=== PATIENT | female | born 1990 ===

== ENCOUNTER 2024-10-19 10:24 | Inpatient (IN) | payer OTHER ==
[2024-10-31] MEDS ORDERED: SILV20CR11 TP (20:53)
[2024-10-31 21:08] VITALS: BP 116/88; PULSE 108; RESP 18; TEMP 98.8; O2SAT 97
[2024-10-31] MEDS ORDERED: SENN8.6T20 PO (21:20)
[2024-10-31] MEDS ORDERED: MULT-1303 PO (21:20)
[2024-10-31] MEDS ORDERED: LACT1CAP58 PO (21:20)
[2024-10-31] MEDS ORDERED: OLAN2.5T78 PO (21:20)
[2024-10-31] MEDS ORDERED: CHOL400T56 PO (21:20)
[2024-10-31] MEDS ORDERED: THIA50TA16 PO (21:20)
[2024-10-31] MEDS ORDERED: ACET-66 PO (21:20)
[2024-10-31] MEDS ORDERED: [UNRECOGNIZED DRUG - CODE] PO (21:20)
[2024-10-31] MEDS ORDERED: ZOLPIDEM TARTRATE 5 MG TABLET PO PRN (21:45)
[2024-10-31] MEDS ORDERED: BISACODYL 10 MG RECTAL RECTAL SUPPOSITORY PR PRN (21:45)
[2024-10-31] MEDS ORDERED: ONDANSETRON HCL 4 MG/2 ML VIAL IVP PRN (21:45)
[2024-10-31] MEDS ORDERED: ACETAMINOPHEN 325 MG TABLET PO PRN (21:45)
[2024-10-31] MEDS ORDERED: MAGNESIUM HYDROXIDE SUSPENSION 30 ML UDCUP PO PRN (21:45)
[2024-10-31] MEDS ORDERED: SENNOSIDES 8.6 MG TABLET PO PRN (21:45)
[2024-10-31] MEDS: HEPARIN SODIUM,PORCINE 5,000 UNITS/ML VIAL SQ SCH (22:36)
[2024-11-01 06:10] VITALS: BP 100/64; PULSE 73; RESP 18; TEMP 97.9; O2SAT 97
[2024-11-01 07:51] VITALS: BP 113/79; PULSE 85; RESP 20; TEMP 97.9; O2SAT 100
[2024-11-01] MEDS: SILVER SULFADIAZINE 1% 25 GM CREAM TUBE TP SCH (08:45)
[2024-11-01] MEDS: ASCORBIC ACID 500 MG TABLET PO SCH (08:46)
[2024-11-01] MEDS: OLANZapine 2.5 MG TABLET PO SCH (08:46)
[2024-11-01] MEDS: PANTOPRAZOLE SODIUM 40 MG DR TABLET PO SCH (08:46)
[2024-11-01] MEDS: CHOLECALCIFEROL (VIT D3) 2,000 UNITS [50 MCG] TABLET PO SCH (08:46)
[2024-11-01] MEDS: DOCUSATE SODIUM 100 MG CAPSULE PO SCH (08:46)
[2024-11-01] MEDS: MULTIVITAMINS WITH MINERALS, THERAPEUTIC TABLET PO SCH (08:46)
[2024-11-01 08:50] LABS: EOSINOPHILS % (AUTO) 1.1 % (1.0-6.0); HEMATOCRIT 42.4 % (36-46); HEMOGLOBIN 14.3 g/dL (12.0-16.0); LYMPHOCYTES # (AUTO) 0.9 K/uL (1.0-4.8); LYMPHOCYTES % (AUTO) 12.2 % (22.0-44.0); MEAN CORPUSCULAR HEMOGLOBIN 31.4 pg (26.0-34.0); MEAN CORPUSCULAR HGB CONC 33.7 G/dL (31.0-37.0); MEAN CORPUSCULAR VOLUME 93 fL (80-100); MONOCYTES # (AUTO) 0.4 K/uL (0.1-1.0); MONOCYTES % (AUTO) 5.7 % (2.0-9.0); NEUTROPHILS # (AUTO) 6.2 K/uL (1.8-7.7); PLATELET COUNT (AUTO) 289 K/uL (150-450); RED BLOOD CELL COUNT(AUTO) 4.55 MIL/uL (4.00-5.20); RED CELL DISTRIBUTION WIDTH 14.8 % (11.5-14.5); WHITE BLOOD COUNT (AUTO) 7.7 K/uL (4.5-11.0)
[2024-11-01 08:57] LABS: ANION GAP 7 mmol/L (8-16); CALCIUM, TOTAL 9.1 mg/dL (8.8-10.5); CARBON DIOXIDE 29 mmol/L (22-29); CHLORIDE 102 mmol/L (98-107); CREATININE 0.53 mg/dL (0.60-1.30); GLOMERULAR FILTR. RATE CALC > 60 mL/min (>60); GLUCOSE,RANDOM 97 mg/dL (70-110); POTASSIUM 3.8 mmol/L (3.5-5.1); SODIUM SERUM 138 mmol/L (136-145); UREA NITROGEN, BLOOD 11 mg/dL (7-18)
[2024-11-01 16:46] VITALS: BP 103/72; PULSE 80; RESP 20; TEMP 98.2; O2SAT 100
[2024-11-01 19:54] VITALS: BP 134/78; PULSE 66; RESP 20; TEMP 98.1; O2SAT 100
[2024-11-02 05:42] VITALS: BP 105/68; PULSE 90; RESP 18; TEMP 98.2; O2SAT 98
[2024-11-02 07:15] LABS: BASOPHILS % (AUTO) 0.5 % (0.0-2.0); EOSINOPHILS % (AUTO) 2.1 % (1.0-6.0); LYMPHOCYTES # (AUTO) 0.7 K/uL (1.0-4.8); LYMPHOCYTES % (AUTO) 13.4 % (22.0-44.0); MEAN CORPUSCULAR HEMOGLOBIN 30.9 pg (26.0-34.0); MEAN CORPUSCULAR HGB CONC 33.3 G/dL (31.0-37.0); MEAN CORPUSCULAR VOLUME 93 fL (80-100); MONOCYTES # (AUTO) 0.4 K/uL (0.1-1.0); MONOCYTES % (AUTO) 8.4 % (2.0-9.0); NEUTROPHILS % (AUTO) 75.6 % (40.0-70.0); PLATELET COUNT (AUTO) 247 K/uL (150-450); RED CELL DISTRIBUTION WIDTH 14.7 % (11.5-14.5); WHITE BLOOD COUNT (AUTO) 5.2 K/uL (4.5-11.0)
[2024-11-02 07:31] LABS: ANION GAP 6 mmol/L (8-16); CALCIUM, TOTAL 8.6 mg/dL (8.8-10.5); CARBON DIOXIDE 29 mmol/L (22-29); CHLORIDE 104 mmol/L (98-107); GLOMERULAR FILTR. RATE CALC > 60 mL/min (>60); GLUCOSE,RANDOM 86 mg/dL (70-110); POTASSIUM 3.9 mmol/L (3.5-5.1); SODIUM SERUM 138 mmol/L (136-145); UREA NITROGEN, BLOOD 10 mg/dL (7-18)
[2024-11-02 08:52] VITALS: BP 108/75; PULSE 78; RESP 18; TEMP 98; O2SAT 99
[2024-11-02] MEDS ORDERED: THIA100T80 PO (11:17)
[2024-11-02] MEDS ORDERED: ACET-2247 PO (11:17)
[2024-11-02] MEDS ORDERED: CHOL25TA4 PO (11:17)
[2024-11-02] MEDS ORDERED: ASCO500 PO (11:17)
[2024-11-02 18:07] VITALS: BP 117/91; PULSE 70; RESP 18; TEMP 97.7; O2SAT 96
[2024-11-02 19:40] VITALS: BP 108/81; PULSE 82; RESP 18; TEMP 98.1; O2SAT 100
[2024-11-02] MEDS: OLANZapine 10 MG TABLET PO SCH (21:00)
[2024-11-02] MEDS: MIRTAZAPINE 15 MG TABLET PO SCH (21:00)
[2024-11-03 04:50] VITALS: BP 111/71; PULSE 83; RESP 18; TEMP 97.3; O2SAT 98
[2024-11-03 07:15] LABS: BASOPHILS % (AUTO) 0.7 % (0.0-2.0); EOSINOPHILS % (AUTO) 1.4 % (1.0-6.0); HEMATOCRIT 36.9 % (36-46); HEMOGLOBIN 12.6 g/dL (12.0-16.0); LYMPHOCYTES # (AUTO) 0.9 K/uL (1.0-4.8); MEAN CORPUSCULAR HEMOGLOBIN 31.5 pg (26.0-34.0); MEAN CORPUSCULAR HGB CONC 34.2 G/dL (31.0-37.0); MEAN CORPUSCULAR VOLUME 92 fL (80-100); MONOCYTES # (AUTO) 0.5 K/uL (0.1-1.0); MONOCYTES % (AUTO) 8.4 % (2.0-9.0); NEUTROPHILS # (AUTO) 4.7 K/uL (1.8-7.7); NEUTROPHILS % (AUTO) 75.5 % (40.0-70.0); PLATELET COUNT (AUTO) 244 K/uL (150-450); RED BLOOD CELL COUNT(AUTO) 4.01 MIL/uL (4.00-5.20); RED CELL DISTRIBUTION WIDTH 14.7 % (11.5-14.5); WHITE BLOOD COUNT (AUTO) 6.2 K/uL (4.5-11.0)
[2024-11-03 07:20] LABS: ANION GAP 7 mmol/L (8-16); CALCIUM, TOTAL 8.5 mg/dL (8.8-10.5); CARBON DIOXIDE 28 mmol/L (22-29); CHLORIDE 103 mmol/L (98-107); GLOMERULAR FILTR. RATE CALC > 60 mL/min (>60); GLUCOSE,RANDOM 91 mg/dL (70-110); POTASSIUM 3.8 mmol/L (3.5-5.1); SODIUM SERUM 138 mmol/L (136-145); UREA NITROGEN, BLOOD 12 mg/dL (7-18)
[2024-11-03 08:23] VITALS: BP 103/78; PULSE 95; RESP 20; TEMP 98.2; O2SAT 100
[2024-11-03] MEDS: PARoxetine HCL 20 MG TABLET PO SCH (09:00)
[2024-11-03] MEDS ORDERED: RISP3TAB77 PO (12:45)
== END 2024-11-03 13:30 | disposition home or self-care (01) | DRG 641 ==
LOC: 6S 10-31 19:45 → 4E 10-31 20:35
PROVIDERS: ADMIT Internal Medicine; ATTEND Internal Medicine
DX: R62.7 Adult failure to thrive (principal); F32.9 Major depressive disorder, single episode, unspecified; Q81.8 Other epidermolysis bullosa; Z79.899 Other long term (current) drug therapy
CPT/HCPCS: 80048; 85025; 87070; 87205; G0378; J1644